=== PATIENT | female | born 1975 | race African-American/Black ===

== ENCOUNTER 2018-03-06 19:54 | Emergency (ER) | payer BC ==
[~2018-03-06] VITALS: Ht 160 cm; Wt 100.7 kg
[2018-03-06 20:08] VITALS: BP 143/81
[2018-03-06] MEDS ORDERED: HYDROcodone-ACET 10/325MG TAB PO ONE (21:15)
== END 2018-03-06 21:48 | disposition home or self-care (01) ==
LOC: ER 19:54
DX: S93.401A Sprain of unspecified ligament of right ankle, initial encounter (principal); W01.0XXA Fall on same level from slipping, tripping and stumbling without subsequent striking against object, initial encounter; Y93.89 Activity, other specified; Y99.8 Other external cause status; Y92.89 Other specified places as the place of occurrence of the external cause
CPT/HCPCS: 73610

== ENCOUNTER 2020-11-27 16:22 | Emergency (ER) | payer BC ==
[~2020-11-27] VITALS: Ht 160 cm; Wt 104.3 kg
[2020-11-27 18:27] LABS: Basophils # (auto) 0 10 ^3/uL (0-0.2); Eosinophils # (auto) 0.3 10 ^3/uL (0-0.8); Hemoglobin 11.2 g/dL (12.2-16.2); Lymphocytes # (auto) 2.2 10 ^3/uL (0.4-5.4); Monocytes # (auto) 0.4 10 ^3/uL (0-1.3)
[2020-11-27 18:29] LABS: Basophils % (auto) 0.5 % (0.0-2.0); Eosinophils % (auto) 4.7 % (0.0-7.0); Hematocrit 34.9 % (36.0-46.0); Lymphocytes % (auto) 33.1 % (10.0-50.0); Mean Corpuscular Hemoglobin 26.3 pg (28.0-32.0); Mean Corpuscular Hgb Conc. 32.1 g/dL (32.0-36.0); Mean Corpuscular Volume 81.8 fL (80.0-100.0); Neutrophils # (auto) 3.7 10 ^3/uL (1.6-8.6); Neutrophils % (auto) 55.7 % (37.0-80.0); Nucleated Red Blood Cells % 0.1 %; Platelet Count (auto) 363 10^3/uL (140-450); Red Blood Cells 4.27 10^6/uL (4.0-5.20); Red Cell Distribution Width 16.5 % (11.8-14.3); White Blood Cell 6.6 10^3/uL (4.4-10.8)
[2020-11-27] MEDS ORDERED: HYDROcodone-ACET 10/325MG TAB PO ONE (18:30)
[2020-11-27] MEDS ORDERED: ACETAMINOPHEN 325 MG TAB PO PRN (18:30)
[2020-11-27 18:46] LABS: Albumin 3.2 g/dL (3.4-5.0); Calcium 8.9 mg/dL (8.5-10.1)
[2020-11-27 18:49] LABS: Bilirubin, Total 0.1 mg/dL (0.2-1.0); CRP High Sensitivity 0.8 mg/dL (< 0.3)
[2020-11-27 19:27] VITALS: BP 106/60
== END 2020-11-27 20:54 | disposition home or self-care (01) ==
LOC: ER 16:22
DX: J20.9 Acute bronchitis, unspecified (principal); I10 Essential (primary) hypertension; Z20.822 Contact with and (suspected) exposure to COVID-19
CPT/HCPCS: 36415; 71045; 80053; 82728; 83880; 85025; 86141; 87426; 93005; 99285; C9803; U0003